=== PATIENT | female | born 1980 | race Two or more races ===

== ENCOUNTER 2024-08-19 18:03 | Observation (INO) | payer MEDICAID ==
[~2024-08-19] VITALS: Ht 162.6 cm; Wt 67.4 kg
--- NOTE | 2024-08-19 19:22 | ED.PDOC ---
History of Present Illness HPI Comments Abigial Rajni Horowitz is a 43-year-old female patient with a 36 week and five day who presents to ED with chief complaint of dyspnea in functional class III, left hand numbness, chills and generalized weakness associated with hypertension (144/80 mmHg). Symptoms started two days ago. Patient called Dr. Pressley's office today and was prompted to visit the ER for further workup. Denies fever, palpitation, syncope, abdominal pain, nausea, vomiting, diarrhea, vaginal discharge, bleeding, unintentional weight loss, sick contacts, recent travel and motor or sensory deficits. Patient confirms movements. Past medical history: Gestational diabetes Surgical history: Denies Family history: Father has hypertension Social history: Lives in [place] with sister. lives in [place], they have a monogamous relationship. Gestations five para three (all vaginal) and we will one (at three weeks gestation). Denies current tobacco, alcohol and other drug abuse Allergies: Denies Home medication: vitamins Chief Complaint: High Blood Pressure Time Seen by MD: 18:37 Allergies: Coded Allergies: NO KNOWN ALLERGIES (Unverified , 08/19/24) Mode of Arrival: Ambulatory Physical Exam General Appearance: No Apparent Distress, Normal HEENT: Normal ENT Inspection, Pharynx Normal, TMs Normal Neck: Full Range of Motion, Non-Tender, Normal, Normal Inspection Respiratory: Chest Non-Tender, Lungs Clear, No Accessory Muscle Use, No Respiratory Distress, Normal Breath Sounds Cardiovascular: No Edema, No JVD, No Murmur, No Gallop, Normal Peripheral Pulses, Regular Rate/Rhythm Breast Exam: Deferred Gastrointestinal: No Organomegaly, Non Tender, No Pulsatile Mass, Normal Bowel Sounds, Soft Genitalia: Other (Patient has a 37 week abdomen), Deferred Pelvic: Deferred Rectal: Deferred Extremities: No calf tenderness, Normal capillary refill, Normal inspection, Normal range of motion, Non-tender, No pedal edema Neurologic: Alert, delivery driver assistant II-XII nml as Tested, No Motor Deficits, Normal Affect, Normal Mood, No Sensory Deficits Cerebellar Function: Normal Reflexes: Normal Skin: Dry, Normal Color, Warm Lymphatic: No Adenopathy Was a procedure done? Was a procedure done?: No Differential Dx Considerations may include: Preeclampsia, HELLP syndrome, gestational hypertension X-Ray, Labs, Meds, VS Vital Signs Date Time Temp Pulse Resp B/P (MAP) Pulse Ox O2 Delivery O2 Flow Rate FiO2 08/19/24 18:31 98.8 89 20 144/83 (103) 96 Time of 1ST Reevaluation: 19:20 Reevaluation 1ST: Unchanged Patient Education/Counseling: Diagnosis, Treatment, Prognosis Family Education/Counseling: Diagnosis, Treatment, Prognosis Departure 1 Departure Time of Disposition: 19:20 Impression: Primary Impression: Gestational hypertension Disposition: 30 STILL A PATIENT (Sent patient to labor and delivery) Condition: Serious Additional Instructions: Call Dr. Pressley, was prompted to defer patient to labor and delivery for evaluation of preeclampsia/HELLP syndrome. Patient will be discharged from ER, and we will be wheeled towards labrum and delivery. Critical Care Note Critical Care Time?: No Stability Stability form required: No Heart Score Heart Score: Heart Score Response (Comments) Value History N/A 0 EKG N/A 0 Age N/A 0 Risk Factors N/A 0 Troponin N/A 0 Total 0 CARLOS SY RESIDENT Aug 19, 2024 19:22
[2024-08-19 20:22] VITALS: BP 140/68; PULSE 82; RESP 20; TEMP 98.6; O2SAT 100
--- NOTE | 2024-08-19 21:54 | DVHDS2 ---
Physician Discharge Progress N Final Diagnosis: IUP 36 wk, Gestaional HTN Operations or Procedures: Operations or Procedures NST, reactive Commentary: Commentary All BP's normal on L&D x > 1hr observation, BP every 15 mins Urine trace protein Asymptomatic PIH labs drawn, results all normal Urine / prot cr ratio < 0.3 (normal) Condition on Discharge: Stable Disposition: Home Discharge Instructions: Activity: Light activity Follow Up/Referral: Keep Appt w/ Dr. Pressley next week Medications: N/A Follow Up Care: Discharge Statement: "Patient was advised to return to the ER or call 911 if any headaches, dizziness, shortness of breath, chest pain, abdominal pain, bleeding, fevers, or worsening of medical condition. Patient was counseled about treatment plan, medications, possible side effects, patientverbalized understanding. All questions were answered to the best of my ability. This discharge took greater then 30 minutes in planning, reviewing documentation, counseling the patient, and discussing with other team members." RADHA GARCIA DO Aug 19, 2024 21:54
[2024-08-19] MEDS ORDERED: PREN-129 OR (22:08)
[2024-08-19 22:23] LABS: Urine Bacteria FEW /hpf (None Seen); Urine Blood Negative /uL (Negative); Urine Clarity Turbid (Clear); Urine Color Colorless (Yellow); Urine Protein, UAD Negative (Negative); Urine Squamous Epithelial Cell MOD /hpf (<5); Urine Urobilinogen Normal (Negative); Urine WBC 15 /HPF (0-5)
[2024-08-19 22:27] LABS: Protein, Urine 10.2 mg/dL (1-14)
[2024-08-19 22:29] LABS: Creatinine, Urine 47.38 mg/dL (30.0-125.0); Urine Protein/Creatinine Ratio 0.22
[2024-08-19 22:29] LABS: Basophils # (auto) 0 10 ^3/uL (0-0.2); Basophils % (auto) 0.3 % (0.0-2.0); Eosinophils # (auto) 0 10 ^3/uL (0-0.8); Eosinophils % (auto) 0.5 % (0.0-7.0); Hematocrit 38.2 % (36.0-46.0); Lymphocytes # (auto) 1.7 10 ^3/uL (0.4-5.4); Lymphocytes % (auto) 22.1 % (10.0-50.0); Mean Corpuscular Hemoglobin 30.3 pg (28.0-32.0); Mean Corpuscular Hgb Conc. 34.1 g/dL (32.0-36.0); Mean Corpuscular Volume 88.8 fL (80.0-100.0); Monocytes # (auto) 0.6 10 ^3/uL (0-1.3); Monocytes % (auto) 7.5 % (0.0-12.0); Neutrophils # (auto) 5.2 10 ^3/uL (1.6-8.6); Neutrophils % (auto) 69.6 % (37.0-80.0); Nucleated Red Blood Cells % 0.1 %; Platelet Count (auto) 183 10^3/uL (140-450); Red Cell Distribution Width 13.5 % (11.8-14.3); White Blood Cell 7.5 10^3/uL (4.4-10.8)
[2024-08-19 22:46] LABS: Alanine Aminotransferase 11 U/L (7-40); Albumin 3.9 g/dL (3.2-4.8); Anion Gap 8 (5-15); Aspartate Aminotransferase 18 U/L (13-40); Calcium 9.1 mg/dL (8.7-10.4); Carbon Dioxide 20 mmol/L (20-31); Glucose 94 mg/dL (74-106); Potassium 3.9 mmol/L (3.5-5.1); Sodium 137 mmol/L (136-145)
[2024-08-19 22:47] LABS: Bilirubin, Total 0.4 mg/dL (0.2-1.0); Total Protein 6.5 g/dL (5.7-8.2)
[2024-08-19 22:48] LABS: INR 0.92 (0.9-1.15); Partial Thromboplastin Time 26.1 SEC (24.5-34.5); Prothrombin Time 9.8 sec (9.3-11.8)
[2024-08-19 22:50] LABS: Alkaline Phosphatase 136 U/L (46-116); Blood Urea Nitrogen 6 mg/dL (9-23); Chloride 109 mmol/L (98-107)
[2024-08-19 23:23] LABS: Uric Acid 3.7 mg/dL (3.1-7.8)
== END 2024-08-19 22:25 | disposition home or self-care (01) ==
LOC: ER 18:03 → LDRP 20:10
PROVIDERS: ADMIT Obstetrics & Gynecology; ATTEND Obstetrics & Gynecology
DX: O13.3 Gestational [pregnancy-induced] hypertension without significant proteinuria, third trimester (principal); O26.893 Other specified pregnancy related conditions, third trimester; R06.00 Dyspnea, unspecified; R53.1 Weakness; Z3A.36 36 weeks gestation of pregnancy; Z86.32 Personal history of gestational diabetes; Z79.899 Other long term (current) drug therapy
CPT/HCPCS: 36415; 59025; 80053; 81001; 81002; 82570; 82948; 82962; 84156; 84550; 85025; 85610; 85730; 94760; 99284; G0378

== ENCOUNTER 2024-08-24 07:45 | Observation (INO) | payer MEDICAID ==
[~2024-08-24 07:45] MED LIST: PREN-129 OR
--- NOTE | 2024-08-24 08:52 | DVH ---
Procedure: US BIOPHYSICAL PROFILE 08/24/2024 08:14 AM Indication: GDMA1, AMA Comparison: None Technique: Sonogram of gravid uterus utilizing grayscale and color techniques. FINDINGS: Single living intrauterine gestation. Presentation: Cephalic Placenta: Fundal, posterior, grade 2 heart rate: 130 bpm NIKKY: 14.9 cm, DVP: 4.7 cm Maternal cervix: Not visualized Biophysical Profile: breathing score: 2 movement score: 2 tone: 2 Quantitative NIKKY score: 2 Total score: 8/8 IMPRESSION: 1. Single living as above. 2. Biophysical profile score: 8/8.
[2024-08-24] MEDS ORDERED: CEPH250C PO (09:25)
--- NOTE | 2024-08-24 09:44 | DVHDS2 ---
Physician Discharge Progress N Final Diagnosis: ama,labor check Operations or Procedures: Operations or Procedures nst,sono Condition on Discharge: Good Disposition: Home Discharge Instructions: Diet: Consistent carbohydrate Activity: No Restrictions, As Tolerated Medications: na Follow Up Care: Specialist: 1w Discharge Statement: "Patient was advised to return to the ER or call 911 if any headaches, dizziness, shortness of breath, chest pain, abdominal pain, bleeding, fevers, or worsening of medical condition. Patient was counseled about treatment plan, medications, possible side effects, patientverbalized understanding. All questions were answered to the best of my ability. This discharge took greater then 30 minutes in planning, reviewing docu mentation, counseling the patient, and discussing with other team members." GARFIELD JORDAN DO Aug 24, 2024 09:44
== END 2024-08-24 09:42 | disposition home or self-care (01) ==
LOC: LDRP 07:45
PROVIDERS: ADMIT Obstetrics & Gynecology; ATTEND Obstetrics & Gynecology
DX: O09.513 Supervision of elderly primigravida, third trimester (principal); O24.419 Gestational diabetes mellitus in pregnancy, unspecified control; Z98.890 Other specified postprocedural states; Z79.899 Other long term (current) drug therapy; Z3A.37 37 weeks gestation of pregnancy
CPT/HCPCS: 59025; 76818; 81002; 94760; G0378

== ENCOUNTER 2024-08-26 22:30 | Inpatient (IN) | payer MEDICAID ==
[~2024-08-26] VITALS: Ht 157.5 cm; Wt 65.8 kg
[~2024-08-26 22:30] MED LIST changes: +CEPH250C PO
[2024-08-26 23:20] LABS: Fern Testing Positive
[2024-08-26] MEDS ORDERED: LIDOCAINE 2%HCL (LOCAL ANESTH.) INJ 20ML MDV IJ PRN (23:30)
[2024-08-26] MEDS ORDERED: NALBUPHINE HCL 10 MG/1ml INJECTION IV PRN (23:30)
[2024-08-27 00:13] LABS: Basophils # (auto) 0.1 10 ^3/uL (0-0.2); Basophils % (auto) 1.4 % (0.0-2.0); Eosinophils # (auto) 0.1 10 ^3/uL (0-0.8); Eosinophils % (auto) 1.2 % (0.0-7.0); Hematocrit 41.3 % (36.0-46.0); Hemoglobin 13.9 g/dL (12.2-16.2); Lymphocytes # (auto) 2.4 10 ^3/uL (0.4-5.4); Lymphocytes % (auto) 27.3 % (10.0-50.0); Mean Corpuscular Hemoglobin 29.9 pg (28.0-32.0); Mean Corpuscular Hgb Conc. 33.7 g/dL (32.0-36.0); Mean Corpuscular Volume 88.6 fL (80.0-100.0); Monocytes # (auto) 0.8 10 ^3/uL (0-1.3); Monocytes % (auto) 8.5 % (0.0-12.0); Neutrophils # (auto) 5.5 10 ^3/uL (1.6-8.6); Neutrophils % (auto) 61.6 % (37.0-80.0); Nucleated Red Blood Cells % 0.1 %; Platelet Count (auto) 175 10^3/uL (140-450); Red Blood Cells 4.67 10^6/uL (4.0-5.20); Red Cell Distribution Width 13.5 % (11.8-14.3); White Blood Cell 8.9 10^3/uL (4.4-10.8)
[2024-08-27] MEDS: WITCH HAZEL-GLYCERIN PAD TOP PRN (00:20)
[2024-08-27] MEDS: LACTATED RINGER'S 1,000 ML IV SCH (00:20)
[2024-08-27] MEDS: DERMOPLAST 60ML BOTTLE TOP PRN (00:20)
[2024-08-27] MEDS: PHISODERM TOP SOLN 240ML BTL TOP PRN (00:20)
[2024-08-27] MEDS: ceFAZolin 1GM/50ML 50 ML IV SCH (00:20)
[2024-08-27 00:23] LABS: Urine Bacteria FEW /hpf (None Seen); Urine Blood 1+ /uL (Negative); Urine Clarity Clear (Clear); Urine Color Light-Yellow (Yellow); Urine Mucus FEW (None Seen); Urine Protein, UAD Negative (Negative); Urine Specific Gravity 1.014 (1.001-1.035); Urine Squamous Epithelial Cell FEW /hpf (<5); Urine Urobilinogen Normal (Negative); Urine WBC 8 /HPF (0-5)
[2024-08-27 00:29] LABS: Amphetamine Screen, Urine Neg (NEGATIVE); Barbiturate Scree,Urine Neg (NEGATIVE); Benzodiazephine Screen, Urine Neg (NEGATIVE); Cannabinoid Screen, Urine Neg (NEGATIVE); Cocaine Screen, Urine Neg (NEGATIVE); Opiate Scree,Urine Neg (NEGATIVE); Phencyclidine Screen, Urine Neg (NEGATIVE)
[2024-08-27 00:33] LABS: INR 0.89 (0.9-1.15); Partial Thromboplastin Time 23.5 SEC (24.5-34.5); Prothrombin Time 9.5 sec (9.3-11.8)
[2024-08-27 00:39] LABS: Alanine Aminotransferase 10 U/L (7-40); Albumin 3.9 g/dL (3.2-4.8); Anion Gap 9 (5-15); Aspartate Aminotransferase 17 U/L (13-40); Calcium 9.9 mg/dL (8.7-10.4); Carbon Dioxide 21 mmol/L (20-31); Chloride 105 mmol/L (98-107); Potassium 3.8 mmol/L (3.5-5.1)
[2024-08-27 00:40] LABS: Alkaline Phosphatase 159 U/L (46-116); Bilirubin, Total 0.4 mg/dL (0.2-1.0); Blood Urea Nitrogen 6 mg/dL (9-23); Glucose 110 mg/dL (74-106); Sodium 135 mmol/L (136-145); Total Protein 6.7 g/dL (5.7-8.2)
[2024-08-27] MEDS: PENICILLIN G POT 5MIL/D5 50ML 50 ML IV ONE (01:07)
--- NOTE | 2024-08-27 01:40 | DVH ---
OB ULTRASOUND, LIMITED CLINICAL INDICATION: Leaking of Fluid TECHNIQUE: Multiple grayscale ultrasound and M-mode images were obtained of the pelvis for evaluation of intrauterine . COMPARISON: None FINDINGS: A single living fetus is seen in cephalic presentation. Biparietal diameter: 9.3 cm (37 weeks, 6 days) Head Circumference: 33.03 cm (37 weeks, 4 days) Abdomen Circumference: 33.67 cm (37 weeks, 4 days) Femur Length: 7.19 cm (36 weeks, 6 days) Estimated weight: 3210 grams (+/- 482 grams). Placenta: Right lateral. Amniotic fluid: Visibly normal. NIKKY 16.4 cm heart rate: 154 beats/min. A complete anatomic survey was not performed on this exam. IMPRESSION: Single intrauterine with an estimated gestational age of 37 weeks, 3 days, corresponding to an estimated date of delivery of 09/13/2024.
[2024-08-27] MEDS ORDERED: ONDANSETRON HCL 4 MG/2 ML VIAL IV PRN (04:15)
[2024-08-27] MEDS: PENICILLIN G POTASSIUM 2,500,000 UNITS in D5W 5% 50 ML IV SCH (04:16)
[2024-08-27] MEDS: miSOPROStol 50 MCG per PRE-CUT 1/2 TAB PO PRN (04:16)
--- NOTE | 2024-08-27 07:24 | DVHHP ---
ADMIT DATE: 08/27/2024 CHIEF COMPLAINT: Rupture of membranes. HISTORY OF PRESENT ILLNESS: The patient is a 43-year-old 5, para 3 with EDC 09/12/2024, estimated gestational age of 37+ weeks, admitted for spontaneous rupture of membrane, clear fluid. The patient denies having any vaginal bleeding. This is associated with some cramping. PAST MEDICAL HISTORY: None. PAST SURGICAL HISTORY: None. SOCIAL HISTORY: None. FAMILY HISTORY: None. OBSTETRIC AND GYNECOLOGIC HISTORY: Three normal vaginal deliveries. Blood type O positive. GBS positive. ALLERGIES: No known drug allergies. PHYSICAL EXAMINATION: VITAL SIGNS: Stable, afebrile. HEENT: Within normal limits. CARDIOVASCULAR: Regular rate and rhythm. LUNGS: Clear to auscultation. BREASTS: Symmetrical. No masses. ABDOMEN: Gravid. Positive heart. PELVIC: 2 cm, 50%, -3. EXTREMITIES: No clubbing, cyanosis or edema. IMPRESSION: * Intrauterine at 37+ weeks with spontaneous rupture of membranes. * AMA. * GBS positive. PLAN: Antibiotic, we will start her on Cytotec. Informed consent obtained. Expectant vaginal delivery. Jeanine Pressley DO MZ/NIR TID: [id number] RECEIPT: [id number]
[2024-08-27 07:57] LABS: Creatinine, Urine 20.84 mg/dL (30.0-125.0); Urine Protein/Creatinine Ratio 0.29
[2024-08-27 08:00] LABS: Protein, Urine < 6.0 mg/dL (1-14)
[2024-08-27] MEDS ORDERED: ePHEDrine SULFATE 50 MG/ML AMP IV ONE (10:00)
[2024-08-27] MEDS ORDERED: NALOXONE HCL 0.4 MG/ML VIAL IV ONE (10:00)
[2024-08-27] MEDS: ROPIVACAINE HCL 200 ML ONE (11:33)
[2024-08-27] MEDS: fentaNYL CITRATE 100 MCG/2 ML VL IV ONE (11:35)
[2024-08-27] MEDS: LACT. RINGERS/OXYTOCIN 20UNITS 1,000 ML IV SCH (12:10)
--- NOTE | 2024-08-27 13:15 | DVHPN2 ---
Chief Complaints Patient reports: No new complaints Nursing reports: No new complaints Objective Vitals Vital Signs Date Time Temp Pulse Resp B/P (MAP) Pulse Ox O2 Delivery O2 Flow Rate FiO2 08/27/24 11:35 116/65 Medications Current Medications Medications (Trade) Dose Ordered Sig/Na Route PRN Reason Start Time Stop Time Status Last Admin Benzocaine (Dermoplast) 1 applic PRN PRN TOP PERINEAL AREA DISCOMFORT 08/26/24 23:30 08/27/24 00:20 Cefazolin Sodium 50 ml @ 100 mls/hr Q8H IV 08/27/24 00:01 08/27/24 08:04 Lactated Ringer's 1,000 ml @ 125 mls/hr Q8H IV 08/26/24 23:30 08/27/24 05:09 Lidocaine HCl (Xylocaine) 40 ml ONCE PRN IJ PERINEAL AREA DISCOMFORT 08/26/24 23:30 Misoprostol (Cytotec) 50 mcg Q4HPRN PRN PO CERVICAL RIPENING 08/27/24 04:15 08/27/24 04:16 Nalbuphine HCl (Nubain) 10 mg Q4HP PRN IV MODERATE PAIN (4-6 PAIN SCALE) 08/26/24 23:30 Ondansetron HCl (Zofran) 4 mg Q6HPRN PRN IV NAUSEA / VOMITING 08/27/24 04:15 Oxytocin 1,000 ml @ 6 ml/hr Q24H IV 08/27/24 11:45 08/27/24 12:10 Penicillin G Potassium [id number] units/Dextrose 50 ml @ 100 mls/hr Q4H IV 08/27/24 04:30 08/27/24 12:15 Sodium Lauryl Sulfate (Phisoderm) 240 ml PRN PRN TOP PERINEAL AREA DISCOMFORT 08/26/24 23:30 08/27/24 00:20 Witch Kerrie (Tucks) 1 pad PRN PRN TOP PERINEAL AREA DISCOMFORT 08/26/24 23:30 08/27/24 00:20 General: Normal Others VE- 3CM/50/-3 Studies Laboratory Tests 08/26/24 23:55 Test 08/26/24 23:55 Range/Units Serum Glucose 110 H 74-106 mg/dL Ass/Plan Assessment IUP AT 37WKS WITHSROM Plan REC EPIDURAL CONT W/PITKAYLAH PEPEAM DO Aug 27, 2024 13:15
[2024-08-27] MEDS ORDERED: fentaNYL CITRATE 100 MCG/2 ML VL ONE (16:00)
[2024-08-27] MEDS ORDERED: LIDOCAINE 2% (LOCAL ANESTH.) PF 5ml SDV ONE (16:00)
--- NOTE | 2024-08-27 16:21 | LDN2 ---
Labor and Delivery Note Date 08/27/24 Age 43 5 Para 4 AB 1 EDC 2-17 EGA 37WKS Diagnosis SROM,ama Vaginal Delivery: VTX Vacuum Assisted: No Placenta: Spontaneous Sex: Male Apgars 8-9 Nuchal Cord Transected: Yes Amniotic Fluid: Clear Anesthesia epidural Episiotomy: No Extension: No EBL 300ml Labs Blood Bank 08/26/24 23:55: Blood Type O POSITIVE Complications none Conditions stable Comments/Significant Med Patti spec exam no cxal lac GARFIELD JORDAN DO Aug 27, 2024 16:21
[2024-08-27] MEDS: LACT. RINGERS/OXYTOCIN 20UNITS 500 ML IV ONE ×2 (16:48→16:49)
[2024-08-27] MEDS ORDERED: ACETAMINOPHEN 325 MG TAB PO PRN (17:30)
[2024-08-27] MEDS ORDERED: IBUPROFEN 800 MG TAB PO SCH (18:00)
[2024-08-27 19:00] VITALS: BP 124/59; PULSE 67; RESP 18; TEMP 98.1; O2SAT 98
[2024-08-27 23:30] VITALS: BP 132/68; PULSE 61; RESP 16; TEMP 97.9; O2SAT 97
[2024-08-28 03:30] VITALS: BP 123/69; PULSE 75; RESP 16; TEMP 97.9; O2SAT 97
--- NOTE | 2024-08-28 05:39 | DVHPN2 ---
Progress Note Date Seen: Aug 28, 2024 Subjective S: Lochia minimal Tolerating regular diet well. Ambulating and voiding well w/o feeling lightheaded or dizzy. Passing flatus but no BM yet. Breast feeding. Contraceptive plan: OCP Desires and requests to be discharged home today vital signs Vital Sign Date Time Temp Pulse Resp B/P (MAP) Pulse Ox O2 Delivery O2 Flow Rate FiO2 08/28/24 03:30 97.9 75 16 123/69 (87) 97 97.9 08/27/24 20:30 Room Air Total Intake and Output 08/27/24 08/27/24 08/28/24 15:00 23:00 07:00 Output Total 1000 ml 950 ml Balance -1000 ml -950 ml medications Current Medications Medications Dose Ordered Sig/Na Route Start Time Stop Time Status Last Admin Dose Admin Lactated Ringer's 1,000 ml @ 125 mls/hr Q8H IV 08/26/24 23:30 08/27/24 05:09 125 MLS/HR Nalbuphine HCl 10 mg Q4HP PRN IV 08/26/24 23:30 Cancel Cefazolin Sodium 50 ml @ 100 mls/hr Q8H IV 08/27/24 00:01 08/27/24 23:34 100 MLS/HR Witch Kerrie 1 pad PRN PRN TOP 08/26/24 23:30 08/27/24 00:20 1 PAD Sodium Lauryl Sulfate 240 ml PRN PRN TOP 08/26/24 23:30 08/27/24 00:20 240 ML Benzocaine 1 applic PRN PRN TOP 08/26/24 23:30 08/27/24 00:20 1 APPLIC Lidocaine HCl 40 ml ONCE PRN IJ 08/26/24 23:30 Cancel Ondansetron HCl 4 mg Q6HPRN PRN IV 08/27/24 04:15 Acetaminophen 650 mg Q4HP PRN PO 08/27/24 17:30 Ibuprofen 800 mg Q6HR PO 08/27/24 18:00 Cancel Ibuprofen 600 mg Q6HP PRN PO 08/27/24 20:30 laboratory and microbiology Laboratory Tests 08/26/24 23:55 Test 08/26/24 23:55 Range/Units Serum Glucose 110 H 74-106 mg/dL Objective O: A&O x3 NAD. Afebrile, VSS Chest: heart and lung sounds normal. Breasts: Nipples intact w/o cracks or soreness Abdomen: normal BS, soft, non-tender, no rebound or guarding, fundus firm @ U- 1, lochia minimal Perineum:- intact, no edema, or erythema, . Extremities: no edema or tenderness Lochia - minimal Assessment/Plan 43yo now ppd#1_ s/p doing well. AMA Blood Type: O Rh: Positive Breast feeding Rubella: Immune Pain control with oral medications Bowel regimen: Increase fluid intake and fiber in diet, Laxative PRN Discharge plan: May discharge home later today Plan discussed with: Patient LEONEL PERERA CNM Aug 28, 2024 05:39
--- NOTE | 2024-08-28 05:43 | DVHDS2 ---
Obstetrics Discharge Summary Obstetrics Discharge Summary Date of Admission: Aug 26, 2024 Date of Discharge: Aug 29, 2024 Reason For Admission: PROM Procedures: None Intrapartum Procedures: Spontaneous vaginal deliv Procedures: None, Antibiotics, Hct/date: (37.6% on 08/28/24), Hgb/date: (12.5g/dL on 08/28/24) Operative Complicat: None Discharge Diagnosis: Term -Delivered, PROM:(Hours) (27hours) Discharge Information: Activity (Unrestricted. Advance as tolerated. No heavy lifting, pushing or straining. Pelvic rest x 6weeks), Diet (Routine regular diet rich in fiber, protein, iron and vitamin C with adequate fluid intake.), Medications (Ibuprofen 600mg every 6 hours as needed for pain. Continue Vitamin and iron), Instructions ( self care instructions given. emergency signs and symptoms including pre-eclampsia precautions and signs of PPD reviewed with patient. Follow up with OB Provider in 1 week), Discharge to (Home) LEONEL PERERA CNM Aug 28, 2024 05:43
[2024-08-28 06:30] VITALS: BP 118/76; PULSE 73; RESP 16; TEMP 98; O2SAT 98
[2024-08-28 09:17] LABS: Basophils # (auto) 0 10 ^3/uL (0-0.2); Basophils % (auto) 0.1 % (0.0-2.0); Eosinophils # (auto) 0 10 ^3/uL (0-0.8); Eosinophils % (auto) 0.2 % (0.0-7.0); Hematocrit 37.6 % (36.0-46.0); Hemoglobin 12.5 g/dL (12.2-16.2); Lymphocytes # (auto) 1.4 10 ^3/uL (0.4-5.4); Lymphocytes % (auto) 10.6 % (10.0-50.0); Mean Corpuscular Hemoglobin 29.6 pg (28.0-32.0); Mean Corpuscular Hgb Conc. 33.3 g/dL (32.0-36.0); Mean Corpuscular Volume 88.8 fL (80.0-100.0); Monocytes # (auto) 0.4 10 ^3/uL (0-1.3); Monocytes % (auto) 3.3 % (0.0-12.0); Neutrophils # (auto) 11.6 10 ^3/uL (1.6-8.6); Neutrophils % (auto) 85.8 % (37.0-80.0); Nucleated Red Blood Cells % 0.1 %; Platelet Count (auto) 171 10^3/uL (140-450); Red Blood Cells 4.24 10^6/uL (4.0-5.20); Red Cell Distribution Width 13.6 % (11.8-14.3); White Blood Cell 13.5 10^3/uL (4.4-10.8)
[2024-08-28] MEDS: IBUPROFEN 600 MG TAB PO PRN (09:24)
[2024-08-28 11:20] VITALS: BP 132/82; PULSE 89; RESP 16; TEMP 98; O2SAT 97
[2024-08-28 19:00] VITALS: BP 136/80; PULSE 85; RESP 18; TEMP 98.4; O2SAT 96
[2024-08-28 23:00] VITALS: BP 132/76; PULSE 82; RESP 16; TEMP 98.3; O2SAT 97
--- NOTE | 2024-08-29 00:33 | DVHPN2 ---
Progress Note Date Seen: Aug 29, 2024 Subjective S: Lochia minimal Tolerating regular diet well. Ambulating and voiding well w/o feeling lightheaded or dizzy. Passing flatus but no BM yet. Breast feeding. Contraceptive plan: Desires and requests to be discharged home today vital signs Vital Sign Date Time Temp Pulse Resp B/P (MAP) Pulse Ox O2 Delivery O2 Flow Rate FiO2 08/28/24 23:00 98.3 82 16 132/76 (94) 97 98.3 08/28/24 18:36 Room Air medications Current Medications Medications Dose Ordered Sig/Na Route Start Time Stop Time Status Last Admin Dose Admin Lactated Ringer's 1,000 ml @ 125 mls/hr Q8H IV 08/26/24 23:30 08/27/24 05:09 125 MLS/HR Nalbuphine HCl 10 mg Q4HP PRN IV 08/26/24 23:30 Cancel Cefazolin Sodium 50 ml @ 100 mls/hr Q8H IV 08/27/24 00:01 08/28/24 17:45 100 MLS/HR Witch Kerrie 1 pad PRN PRN TOP 08/26/24 23:30 08/27/24 00:20 1 PAD Sodium Lauryl Sulfate 240 ml PRN PRN TOP 08/26/24 23:30 08/27/24 00:20 240 ML Benzocaine 1 applic PRN PRN TOP 08/26/24 23:30 08/27/24 00:20 1 APPLIC Lidocaine HCl 40 ml ONCE PRN IJ 08/26/24 23:30 Cancel Ondansetron HCl 4 mg Q6HPRN PRN IV 08/27/24 04:15 Acetaminophen 650 mg Q4HP PRN PO 08/27/24 17:30 Ibuprofen 800 mg Q6HR PO 08/27/24 18:00 Cancel Ibuprofen 600 mg Q6HP PRN PO 08/27/24 20:30 08/28/24 18:32 600 MG laboratory and microbiology Laboratory Tests 08/28/24 08:50 08/26/24 23:55 Test 08/26/24 23:55 Range/Units Serum Glucose 110 H 74-106 mg/dL Objective O: A&O x3 NAD. Afebrile, VSS Chest: heart and lung sounds normal. Breasts: Nipples intact w/o cracks or soreness Abdomen: normal BS, soft, non-tender, no rebound or guarding, fundus firm @ U- 1, lochia minimal Perineum:- no edema, or erythema Extremities: no edema or tenderness Lochia - minimal Assessment/Plan A/P 43yo now ppd#2_ s/p doing well. Blood Type: O Rh: Positive Breast feeding Rubella: Immune Pain control with oral medications Bowel regimen: Increase fluid intake and fiber in diet, Laxative PRN Discharge plan: May discharge home later today Plan discussed with: Patient LEONEL PERERA CNM Aug 29, 2024 00:33
[2024-08-29 03:00] VITALS: BP 138/79; PULSE 79; RESP 16; TEMP 98; O2SAT 96
[2024-08-29 07:24] VITALS: BP 142/80; PULSE 75; RESP 17; TEMP 98.1; O2SAT 97
[2024-08-29 12:06] LABS: Chlamydia Trachomatis, NAA Negative (Negative); Neisseria gonorrhoeae, NAA Negative (Negative)
[2024-08-30 04:06] LABS: RPR Non Reactive (Non Reactive)
== END 2024-08-29 09:47 | disposition home or self-care (01) | DRG 560 ==
LOC: LDRP 22:30 → OBSVTOIN 23:30 → LDRP 23:33
PROVIDERS: ADMIT Obstetrics & Gynecology; ATTEND Obstetrics & Gynecology
PROC: 10E0XZZ Delivery of Products of Conception, External Approach (ICD-10-PCS; principal; 2024-08-27)
PROC: 3E0R3BZ Introduction of Anesthetic Agent into Spinal Canal, Percutaneous Approach (ICD-10-PCS; 2024-08-27)
PROC: 00HU33Z Insertion of Infusion Device into Spinal Canal, Percutaneous Approach (ICD-10-PCS; 2024-08-27)
DX: O69.81X0 Labor and delivery complicated by cord around neck, without compression, not applicable or unspecified (principal); Z37.0 Single live birth; O99.824 Streptococcus B carrier state complicating childbirth; Z3A.37 37 weeks gestation of pregnancy
CPT/HCPCS: 36415; 59025; 59409; 62282; 76805; 80053; 80307; 81001; 81002; 82570; 84112; 84156; 84550; 85025; 85610; 85730; 86592; 86803; 86850; 86900; 86901; 87081; 94760; 94762; 96360; 96361; 96365; 96366; G0378; J2003; J2540; J2590; J7060

== ENCOUNTER 2024-08-31 01:17 | Emergency (ER) | payer SELFPAY ==
[~2024-08-31] VITALS: Ht 157.5 cm; Wt 61.4 kg
[2024-08-31 01:18] VITALS: BP 151/84; RESP 18; O2SAT 98
[2024-08-31 01:24] VITALS: PULSE 56
--- NOTE | 2024-08-31 01:48 | ED.PDOC ---
HPI Comments HPI: Poor Historian. 43-year-old female presents to the emergency department for evaluation of midsternal chest tightness worse with deep inspiration. No other associated symptoms. No alleviating precipitating factors. This happened approximately 6:30 p.m. while at rest. Patient is status post normal delivery of a baby this past Thursday. Vitals: temperature of 98.7, pulse rate of 68, respiratory rate of 18, blood pressure of 151/84, and a SpO2 of 98% on room air. Past Medcial History: Denies Past Surgical History: Denies REVIEW OF SYSTEMS: CONSTITUTIONAL: Denies acute: fever, diaphoresis, chills, generalized weakness. HEAD: Denies acute: headache, photophobia Eyes: Denies acute: Double vision, vision loss, eye pain, eye discharge. EARS: Denies acute: tinnitus, hearing loss, ear discharge, ear pain, THROAT: Denies acute: sore throat, swelling, difficulty swallowing , pain with swallowing, change in voice. NECK: Denies acute: neck pain, neck swelling, stiff neck. HEART: Denies acute : , palpitations, LUNGS: Denies acute: wheezing, cough, hemoptysis ABDOMEN: Denies acute: abdominal pain, Nausea, Vomiting, diarrhea, melena , hematemesis, hematochezia SKIN: Denies acute: rash, redness, lesions, itchiness. EXTREMITIES: Denies acute: calf pain, numbness, tingling, weakness, denies pain in extremity. Denies acute: Low back pain. Neuro: Denies acute: focal neurological deficit, motor or sensory focal neurological deficit, tremors, seizure like activity, confusion, dizziness, change in mental status, loss of bowel or bladder function, cauda equina like symptoms. : Denies acute: dysuria, hematuria, flank pain, increase in urinary frequency. PSYCH: Denies acute: hallucination, suicidal ideation, homicidal ideation. FEMALE: Denies acute: abnormal vaginal bleeding, foul odor, unusual discharge. PHYSICAL EXAM: General: no acute distress, awake and alert. Head: normocephalic, atraumatic. Neck: supple, trachea is midline, no swelling. Throat: Normal phonation. Eyes:, no erythema, no purulent discharge, no proptosis, no icterus. Heart: regular rate, regular rhythm, no significant murmur appreciated. Lungs: no apparent respiratory distress, Able to speak in full sentences. No wheezing, no rhonchi, no crackles. No stridors Clear to auscultation bilaterally. Abdomen: non tender to palpation, non distended, soft, no guarding, no rebound, + bowel sounds. Neuro: Awake, Alert, oriented to name, self, situation, follows commands GCS=15. Speech is normal. Skin: no petechia, no purpura, no cyanosis, non-pale, not jaundice. Lower extremities: --no - Pitting edema no deformity, no focal swelling, no calf TTP. Makes eye contact. moves all four extremities. Face: no apparent facial droop. Ambulating in the ED independently. Chief Complaint: Chest Pain Time Seen by MD: 01:26 Reviewed Notes: Nurses Notes, Medications, Allergies Allergies: Coded Allergies: NO KNOWN ALLERGIES (Unverified , 08/19/24) Home Meds Reported Medications Cephalexin (KEFLEX CAPSULE) 250 Mg Cp, 500 MG PO QID for UTI for 7 Days, #28 08/24/24 Vit W/ Ferrous Fumara () Tab, 1 OR, TAB 08/19/24 Information Source: Patient Past Medical History PAST MEDICAL HISTORY: Denies Surgical History: Denies all surgeries FLEET ADMINISTRATIVE ASSISTANT History: Denies all FLEET ADMINISTRATIVE ASSISTANT Hx Family History Family History: Unknown Social History Smoker: Non-Smoker Alcohol: Denies ETOH Use Drugs: Denies Drug Use Lives In: Home Was a procedure done? Was a procedure done?: No CP Differential Dx Differential Diagnosis: N/A Differential Diagnosis: Other (Ddx include but not limitied to gastritis, musculoskeletal pain, radiculopathy, atypical chest pain, dissection, aneurysm, ACS, unstable angina, hiatal hernia, GERD, anxiety, costochondritis, PE, pneumothroax, neoplasm, cardiac ischemia, drug abuse, anemia.) X-Ray, Labs, Meds, VS Vital Signs Date Time Temp Pulse Resp B/P (MAP) Pulse Ox O2 Delivery O2 Flow Rate FiO2 08/31/24 01:24 56 08/31/24 01:18 98.7 68 18 151/84 (106) 98 Lab Test 08/31/24 02:23 08/31/24 02:00 08/31/24 01:30 Range/Units Troponin I High Sensitivity 3 L 3 L </=34 ng/L Blood Gas Specimen Type Arterial Blood Gas Sample Site Right radial Blood Gas Patient Temperature 37.0 Arterial Blood Date Drawn [id number] Arterial Blood pH 7.454 H 7.350-7.450 Arterial Blood Partial Pressure CO2 30.1 L 32.0-45.0 mmHg Arterial Blood Partial Pressure O2 86.1 83.0-108.0 mmHg Arterial Blood HCO3 20.6 L 21.0-28.0 mmol/L Arterial Blood Oxygen Saturation 95.9 94.0-98.0 % Arterial Blood Base Excess -2.4 L -2.0-3.0 mmol/L Arterial Blood Oxyhemoglobin 95.2 94.0-98.0 % Arterial Blood Carboxyhemoglobin 0.4 L 0.5-1.5 % Arterial Blood Methemoglobin 0.3 0.0-1.5 % Wilfrid Test Yes Blood Gas Total Hemoglobin 11.80 L 12.0-16.0 g/dL Blood Gas Liter Flow 0.00 Blood Gas Modality Room air FiO2 % 21.0 White Blood Count 11.7 H 4.4-10.8 10^3/uL Red Blood Count 3.85 L 4.0-5.20 10^6/uL Hemoglobin 11.4 L 12.2-16.2 g/dL Hematocrit 34.6 L 36.0-46.0 % Mean Corpuscular Volume 89.9 80.0-100.0 fL Mean Corpuscular Hemoglobin 29.6 28.0-32.0 pg Mean Corpuscular Hemoglobin Concent 32.9 32.0-36.0 g/dL Red Cell Distribution Width 13.7 11.8-14.3 % Platelet Count 204 140-450 10^3/uL Mean Platelet Volume 8.5 6.9-10.8 fL Neutrophils (%) (Auto) 75.8 37.0-80.0 % Lymphocytes (%) (Auto) 18.1 10.0-50.0 % Monocytes (%) (Auto) 4.7 0.0-12.0 % Eosinophils (%) (Auto) 1.0 0.0-7.0 % Basophils (%) (Auto) 0.4 0.0-2.0 % Neutrophils # (Auto) 8.9 H 1.6-8.6 10 ^3/uL Lymphocytes # (Auto) 2.1 0.4-5.4 10 ^3/uL Monocytes # (Auto) 0.5 0-1.3 10 ^3/uL Eosinophils # (Auto) 0.1 0-0.8 10 ^3/uL Basophils # (Auto) 0.1 0-0.2 10 ^3/uL Nucleated Red Blood Cells 0.1 % Sodium Level 138 136-145 mmol/L Potassium Level 3.8 3.5-5.1 mmol/L Chloride Level 106 98-107 mmol/L Carbon Dioxide Level 22 20-31 mmol/L Anion Gap 10 5-15 Blood Urea Nitrogen 10 9-23 mg/dL Creatinine 0.42 L 0.550-1.02 mg/dL Glomerular Filtration Rate Calc 125 >90 mL/min BUN/Creatinine Ratio 23.8 H 10.0-20.0 Serum Glucose 99 74-106 mg/dL Calcium Level 9.2 8.7-10.4 mg/dL Time of 1ST Reevaluation: 01:56 Reevaluation 1ST: Unchanged Patient Education/Counseling: Other Family Education/Counseling: Other Comments Patient presented with the above HPI. cardiac workup was initiated. patient was found with the above mentioned diagnosis. the following medications were ordered: n/a the following tests were ordered: EKG, CBC, troponin, CXR, BMP, ABG Patient ED course and VS have been stabilized. Patient has been reassessed in the ED and remained in a stable condition. Escalation of care considered: Consideration of escalation to observation or admission Patient eloped All the reports of any imaging studies that were ordered by myself were reviewed by myself. Departure 1 Departure Time of Disposition: 03:36 Impression: Primary Impression: Chest pain Disposition: 07 LEFT AWOL/ELOPED Admit to: Tele Condition: Guarded Additional Instructions: Patient eloped Discharged With: Self Critical Care Note Critical Care Time?: No Heart Score Heart Score: Heart Score Response (Comments) Value History N/A 0 EKG N/A 0 Age N/A 0 Risk Factors N/A 0 Troponin N/A 0 Total 0 I personally scribed for MIRIAM MARKHAM DO ([email or web address]) on 08/31/24 at 02:16. Electronically submitted by Gerber Saenz ([email or web address]). MIRIAM MARKHAM DO Aug 31, 2024 01:48
[2024-08-31 01:53] LABS: Basophils # (auto) 0.1 10 ^3/uL (0-0.2); Basophils % (auto) 0.4 % (0.0-2.0); Eosinophils # (auto) 0.1 10 ^3/uL (0-0.8); Hematocrit 34.6 % (36.0-46.0); Hemoglobin 11.4 g/dL (12.2-16.2); Lymphocytes # (auto) 2.1 10 ^3/uL (0.4-5.4); Lymphocytes % (auto) 18.1 % (10.0-50.0); Mean Corpuscular Hemoglobin 29.6 pg (28.0-32.0); Mean Corpuscular Hgb Conc. 32.9 g/dL (32.0-36.0); Mean Corpuscular Volume 89.9 fL (80.0-100.0); Monocytes # (auto) 0.5 10 ^3/uL (0-1.3); Monocytes % (auto) 4.7 % (0.0-12.0); Neutrophils # (auto) 8.9 10 ^3/uL (1.6-8.6); Neutrophils % (auto) 75.8 % (37.0-80.0); Nucleated Red Blood Cells % 0.1 %; Platelet Count (auto) 204 10^3/uL (140-450); Red Blood Cells 3.85 10^6/uL (4.0-5.20); Red Cell Distribution Width 13.7 % (11.8-14.3); White Blood Cell 11.7 10^3/uL (4.4-10.8)
[2024-08-31 02:05] LABS: Base Excess -2.4 mmol/L (-2.0-3.0)
[2024-08-31 02:07] LABS: Chloride 106 mmol/L (98-107); Potassium 3.8 mmol/L (3.5-5.1); Sodium 138 mmol/L (136-145)
[2024-08-31 02:08] LABS: Anion Gap 10 (5-15); Calcium 9.2 mg/dL (8.7-10.4); Carbon Dioxide 22 mmol/L (20-31)
[2024-08-31 02:13] LABS: BUN/Creatinine Ratio 23.8 (10.0-20.0); Blood Urea Nitrogen 10 mg/dL (9-23); Glucose 99 mg/dL (74-106)
--- NOTE | 2024-08-31 02:24 | DVH ---
CHEST RADIOGRAPH Indication: CP Technique: Single frontal view of the chest was obtained COMPARISON: None FINDINGS: Lines and Tubes: None Lungs: There is hazy opacity at the right lung base. Pleura: No effusion. No pneumothorax. Cardiomediastinal contours: Unremarkable Bones: Unremarkable IMPRESSION: 1. Right basilar pneumonia.
[2024-08-31] MEDS ORDERED: NITROGLYCERIN 0.4 MG SL TAB SL ONE (03:00)
[2024-08-31] MEDS ORDERED: ASPirin-EC 325mg tab PO ONE (03:00)
--- NOTE | 2024-08-31 12:10 | ECG ---
[facility] Test Date: 2024-08-31 Test Time: 01:24:05 Pat Name: HÉCTOR HERNÁNDEZ Department: ER Room: Gender: F Manager Float: DANI : 1980 Requested By: EMERGENCY EMERGENCY Order Number: [id number] Reading MD: Burton Lutz Measurements Intervals [place] Rate: 56 P: 60 CO: 116 QRS: 63 QRSD: 92 T: 57 QT: 409 QTc: 395 Interpretive Statements Sinus rhythm Borderline short CO interval Electronically Signed On 08-31-2024 13:32:19 PST by Burton Lutz Please click the below link to view image of tracing.
== END 2024-08-31 03:42 | disposition left against medical advice (07) ==
LOC: ER 01:17
DX: R07.89 Other chest pain (principal)
CPT/HCPCS: 36415; 36600; 71045; 80048; 82805; 84484; 85025; 93005